=== PATIENT | male | born 1960 | race Caucasian/White ===

== ENCOUNTER 2018-02-01 13:52 | Emergency (ER) | payer MEDICARE ==
[~2018-02-01] VITALS: Ht 177.8 cm; Wt 153.3 kg
[2018-02-01] MEDS ORDERED: QUETIAPINE FUM200 M3 PO (14:08)
[2018-02-01] MEDS ORDERED: CYCLOBENZAPRINE10 MG PO (16:00)
[2018-02-01] MEDS ORDERED: Motrin,Rufen800 MG PO (16:00)
== END 2018-02-01 16:10 | disposition home or self-care (01) ==
LOC: ED 13:52
DX: M79.605 Pain in left leg (principal); M25.552 Pain in left hip; F17.200 Nicotine dependence, unspecified, uncomplicated; Z88.6 Allergy status to analgesic agent; Z88.8 Allergy status to other drugs, medicaments and biological substances; Z79.899 Other long term (current) drug therapy